=== PATIENT | female | born 1960 | race Caucasian/White ===

== ENCOUNTER 2017-04-21 03:35 | Emergency (ER) | payer BC ==
[~2017-04-21] VITALS: Ht 172.7 cm; Wt 82.0 kg
[2017-04-21 03:37] VITALS: BP 146/86; PULSE 60; RESP 16; TEMP 97.6; O2SAT 98
[2017-04-21] MEDS ORDERED: PROPARACAINE HCL 0.5% OPHT SOLN 15 ML BTL EACH EYE ONE (04:30)
[2017-04-21] MEDS ORDERED: TETRACAINE 0.5% OPTH SOLN 4 ML BTL EACH EYE ONE (04:30)
--- NOTE | 2017-04-21 04:53 | PD ---
HPI Chief Complaint: Eye Problems/Injury Time Seen by Provider: 03:54 Travel History International Travel<30 days: No Contact w/Intl Traveler<30days: No Traveled to known affect area: No History of Present Illness HPI Patient is a 57-year-old female who had a subconjunctival hematoma, that was improving [place] her sclera subconjunctivae has a large hemorrhage that goes around the iris it is not completely circumferential in the upper outer part of her sclera is clear however the medial aspect near the medial canthus is to have a vessel that bled. Vision is not involved her vision is the same she has no pain she has no foreign body sensation she was just worried by the extent of the actual red bleeding below the sclera. She has not seen another doctor for this and she has not taking any medication for this. It began about a week ago was improving and then acutely got worse the last 24 hours. PFSH Past Medical History Medical History: Denies Significant Hx Immunizations Current: Yes Past Surgical History Hysterectomy: Yes Social History Alcohol Use: Yes (OCC) Tobacco Use: No Substance Use: No Allergies-Medications (Allergen,Severity, Reaction): Coded Allergies: Penicillins (Verified Allergy, Unknown, UNKNOWN, 04/21/17) Review of Systems Except as stated in HPI: all other systems reviewed are Neg Eyes: Positive: Redness, No: Diploplia, Blurred Vision, Photophobia, Foreign Body Sensation, Pain, Visual changes (bleeding around her right iris subconjunctival ), Blindness Physical Exam Narrative Right : eye has medial lower and lateral subconjunctival hematoma from 9:00 to 12:00 on her sclera around the iris it is clear sclera. Data Data Last Documented VS Vital Signs Date Time Temp Pulse Resp B/P (MAP) Pulse Ox O2 Delivery O2 Flow Rate FiO2 04/21/17 05:13 04/21/17 03:37 97.6 60 16 98 Room Air Orders Orders Tetracaine 0.5% Opth Soln (Tetracaine 0. (04/21/17 04:30) Proparacaine 0.5% Opth Soln (Alcaine 0.5 (04/21/17 04:30) Ed Discharge Order (04/21/17 04:58) MDM Medical Decision Making Medical Screen Exam Complete: Yes Emergency Medical Condition: Yes Differential Diagnosis Subconjunctival hemorrhage due to trauma versus spontaneous hemorrhage versus hypertensive induced bleed Narrative Course Visual inspection and slit lamp showed that there was a vessel that leaked blood on the medial aspect of the sclera with watershed like blood around the lower and lateral aspect on the lower aspect > the iris the right upper outer quadrant is clear. Not a circumferential hematoma Diagnosis Primary Impression: Subconjunctival bleed Qualified Codes: H11.31 - Conjunctival hemorrhage, right eye Additional Impression: Subconjunctival hemorrhage of right eye Referrals: Reny Cash MD Patient Instructions: General Instructions, Subconjunctival Hemorrhage (ED) Disposition: 01 DISCHARGE HOME Condition: Good Rocky Ness MD Apr 21, 2017 04:53
== END 2017-04-21 05:13 | disposition home or self-care (01) ==
LOC: NEPC 03:35
DX: H11.31 Conjunctival hemorrhage, right eye (principal)
CPT/HCPCS: 99283